=== PATIENT | male | born 1995 | race Two or more races ===

== ENCOUNTER 2020-11-07 15:35 | Emergency (ER) | payer BC, OTHER ==
[~2020-11-07] VITALS: Ht 175.3 cm; Wt 79.4 kg
[2020-11-07 16:48] VITALS: BP 138/75
== END 2020-11-07 17:49 | disposition home or self-care (01) ==
LOC: ER 15:35
DX: S39.012A Strain of muscle, fascia and tendon of lower back, initial encounter (principal); S63.92XA Sprain of unspecified part of left wrist and hand, initial encounter; F17.210 Nicotine dependence, cigarettes, uncomplicated; V49.9XXA Car occupant (driver) (passenger) injured in unspecified traffic accident, initial encounter; Y93.89 Activity, other specified; Y92.89 Other specified places as the place of occurrence of the external cause; Y99.9 Unspecified external cause status
CPT/HCPCS: 73130